=== PATIENT | female | born 1985 | race Two or more races ===

== ENCOUNTER → 2019-06-04 | Outpatient (CLI) | payer OTHER | END | disposition home or self-care (01) | LOC: PRENATAL 11:00 | DX: O10.011 Pre-existing essential hypertension complicating pregnancy, first trimester (principal); O09.521 Supervision of elderly multigravida, first trimester; O36.80X1 Pregnancy with inconclusive fetal viability, fetus 1 ==

== ENCOUNTER → 2019-07-27 | Outpatient (CLI) | payer OTHER | END | disposition home or self-care (01) | LOC: PRENATAL 08:00 | DX: O10.012 Pre-existing essential hypertension complicating pregnancy, second trimester (principal); O09.522 Supervision of elderly multigravida, second trimester; O35.3XX0 Maternal care for (suspected) damage to fetus from viral disease in mother, not applicable or unspecified ==

== ENCOUNTER → 2019-09-21 | Outpatient (CLI) | payer OTHER | END | disposition home or self-care (01) | LOC: PRENATAL 08:00 | PROVIDERS: ATTEND Obstetrics & Gynecology | DX: O26.843 Uterine size-date discrepancy, third trimester (principal); O09.523 Supervision of elderly multigravida, third trimester; O10.013 Pre-existing essential hypertension complicating pregnancy, third trimester ==

== ENCOUNTER → 2019-10-19 | Outpatient (CLI) | payer OTHER | END | disposition home or self-care (01) | LOC: PRENATAL 09:00 | PROVIDERS: ATTEND Obstetrics & Gynecology | DX: O26.843 Uterine size-date discrepancy, third trimester (principal); O09.523 Supervision of elderly multigravida, third trimester; O10.013 Pre-existing essential hypertension complicating pregnancy, third trimester ==

== ENCOUNTER → 2019-11-19 | Outpatient (CLI) | payer OTHER ==
[~2019-11-19] MED LIST: ALDOMET250 MG/5 M PO; ASPIR 8181 MG PO; PRENATAL CAPLE1 EAC1 PO
== END | disposition home or self-care (01) ==
LOC: PRENATAL 08:00
PROVIDERS: ATTEND Obstetrics & Gynecology Maternal & Fetal Medicine
DX: O26.843 Uterine size-date discrepancy, third trimester (principal); O10.013 Pre-existing essential hypertension complicating pregnancy, third trimester; O36.8131 Decreased fetal movements, third trimester, fetus 1; O09.523 Supervision of elderly multigravida, third trimester; Z36.89 Encounter for other specified antenatal screening; Z3A.36 36 weeks gestation of pregnancy

== ENCOUNTER 2019-11-26 10:07 | Inpatient (IN) | payer OTHER ==
[~2019-11-26] VITALS: Ht 162.6 cm; Wt 72.6 kg
[2019-11-26] MEDS ORDERED: ALDOMET250 MG/5 M PO (17:14)
[2019-11-26] MEDS ORDERED: ASPIR 8181 MG PO (17:15)
[2019-11-26] MEDS ORDERED: PRENATAL CAPLE1 EAC1 PO (17:15)
== END 2019-11-28 14:46 | disposition home or self-care (01) | DRG 807 ==
LOC: OBS/DEL 10:07 → LDR 11:41 → OBS/DEL 11:41 → SURG-SUITE 19:00
PROVIDERS: ADMIT Obstetrics & Gynecology; ATTEND Obstetrics & Gynecology
PROC: 10E0XZZ Delivery of Products of Conception, External Approach (ICD-10-PCS; principal; 2019-11-26)
PROC: 10907ZC Drainage of Amniotic Fluid, Therapeutic from Products of Conception, Via Natural or Artificial Opening (ICD-10-PCS; 2019-11-26)
PROC: 4A1HXCZ Monitoring of Products of Conception, Cardiac Rate, External Approach (ICD-10-PCS; 2019-11-26)
DX: O99.824 Streptococcus B carrier state complicating childbirth (principal); Z37.0 Single live birth; O10.02 Pre-existing essential hypertension complicating childbirth; Z20.828 Contact with and (suspected) exposure to other viral communicable diseases; Z3A.37 37 weeks gestation of pregnancy